=== PATIENT | female | born 1990 | race Caucasian/White ===

== ENCOUNTER 2016-12-01 14:47 | Emergency (ER) | payer OTHER ==
--- NOTE | ~2016-12-01 | CR219 ---
[facility]. [facility] A Service of [facility] & [facility] RADIOLOGY TEXT RESULTS PATIENT: IVAN MONSIVAIS LOCATION: SED : 86 UNIT #: [id number] AGE: [address]: Xuan Herring SEX: F ORDER DR: [id number] [address] [address] [id number] MR#: [id number] Acc #: [id number] NAME: IVAN MONSIVAIS : 1990 SEX: F STUDY DATE/TIME: 12/01/2016 15:12 UNIT: SED ROOM: STUDY DESCRIPTION: CR Sacrum and Coccyx Min 2 Vie Attending Physician: Xuan Herring Pa-C Referring Physician: Xuan Herring Pa-C Ordering Physician: Xuan Herring Pa-C Primary Care Physician: Ceferino Cornell M.D. MEDICAL IMAGING REPORT This report is preliminary unless electronic signature is present. EXAM Sacrum and coccyx HISTORY 26-year-old female tailbone pain. Fell down steps last night. FINDINGS Routine views of the sacrum and coccyx demonstrates no fracture deformity. Soft tissues appear normal. The visualized pelvis and SI joints unremarkable. IMPRESSION Normal sacrum and coccyx. Dictated by... Kathe Mansfield M.D. THIS IS AN ELECTRONICALLY VERIFIED REPORT Kathe Mansfield M.D. at 12/01/2016 8:37 PM [email or web address] TD: 12/01/2016 18:29 JOB #: [id number] MEDICAL IMAGING REPORT Page 1 of 1
[~2016-12-01 14:47] MED LIST: BACTRIM DS TABL1 TA1 PO; CELEXA PO; DICLOFENAC PO; FLEXERIL PO; FLEXERIL10 MG PO; MIRALAX17 GM PO; MOTRIN600 M1 PO; NAPROXEN; NO MEDICATIONS; PROZAC; SLEEPING PILL; VOLTAREN PO; [UNRECOGNIZED DRUG - REMARK]
== END 2016-12-01 16:07 | disposition home or self-care (01) ==
LOC: SED 14:47
DX: S30.0XXA Contusion of lower back and pelvis, initial encounter (principal); F32.9 Major depressive disorder, single episode, unspecified; F17.210 Nicotine dependence, cigarettes, uncomplicated; Z88.5 Allergy status to narcotic agent; Z91.040 Latex allergy status; Z88.8 Allergy status to other drugs, medicaments and biological substances; W01.0XXA Fall on same level from slipping, tripping and stumbling without subsequent striking against object, initial encounter
CPT/HCPCS: 72220; 84703; 99283

== ENCOUNTER 2017-04-12 22:11 | Emergency (ER) | payer OTHER | END 2017-04-12 22:46 | disposition home or self-care (01) | LOC: SED 22:11 | DX: S80.862A Insect bite (nonvenomous), left lower leg, initial encounter (principal); S80.861A Insect bite (nonvenomous), right lower leg, initial encounter; S40.862A Insect bite (nonvenomous) of left upper arm, initial encounter; S40.861A Insect bite (nonvenomous) of right upper arm, initial encounter; F41.9 Anxiety disorder, unspecified; F32.9 Major depressive disorder, single episode, unspecified; F17.200 Nicotine dependence, unspecified, uncomplicated; W57.XXXA Bitten or stung by nonvenomous insect and other nonvenomous arthropods, initial encounter; Y92.9 Unspecified place or not applicable | CPT/HCPCS: 99282 ==